=== PATIENT | male | born 1940 | race Two or more races ===

== ENCOUNTER 2019-09-13 16:06 | Emergency (ER) | payer OTHER, MEDICAID ==
[~2019-09-13] VITALS: Ht 165.1 cm; Wt 60.8 kg
[2019-09-13] MEDS ORDERED: LIPITOR80 MG ORAL (16:39)
[2019-09-13] MEDS ORDERED: PLAVIX75 MG ORAL (16:39)
[2019-09-13] MEDS ORDERED: NITRO0.4 SL (16:39)
[2019-09-13] MEDS ORDERED: ASPIRIN-LOW81 MG ORAL (16:39)
[2019-09-13] MEDS ORDERED: KEPPRA500 M3 ORAL (16:39)
--- NOTE | 2019-09-13 16:50 | NUR ---
ED Nurse Note: pt eval by . pt denies known injury to leg. able to ambulate steady gait to rm
--- NOTE | 2019-09-13 16:53 | Emergency Room Report ---
History of Present Illness General Chief Complaint: General Complaint Source: Patient Present Illness HPI Disclaimer: Please note that this report is being documented using [employer] technology. This can lead to erroneous entry secondary to incorrect interpretation by the dictating instrument. HPI: 79-year-old male history of hypertension, CAD on aspirin and Plavix presents for evaluation of bruising to the lower extremity. He cannot recall a specific injury but states he has had a tender bruise over the medial aspect of the left knee for approximately 8 days. Does not impede his ambulation. Reports moderate pain that is worse with standing and better with rest. Not taking any medications for pain. He was concerned because he could not recall a specific injury and wanted to get checked out. He is not discussed with his PMD yet. Otherwise denies any recent changes in his health. Does not take anticoagulants aside from aspirin and Plavix. PMH: Hypertension, CAD, seizure disorder PSH: Reviewed Allergies: Denies Social Hx: Denies Allergies: Coded Allergies: No Known Allergies (Unverified , 09/13/19) Nursing Documentation-PMH Hx Seizures: Yes Review of Systems All Other Systems: negative except mentioned in HPI Physical Exam Vital Signs Date Time Temp Pulse Resp B/P (MAP) Pulse Ox O2 Delivery O2 Flow Rate FiO2 09/13/19 16:22 97.9 78 19 149/78 (101) 99 Room Air General: Awake and alert, no acute distress HEENT: NC/AT. EOMI. Resp: Normal work of breathing Skin: Ecchymosis over the lateral aspect the left knee extending into the proximal tibia. Tender to palpation. No edema. No skin breakdown. MSK: Normal tone and bulk. Moving all extremities. No obvious deformity. Tender palpation over the proximal tibia. No laxity in the knee. No tenderness over the patella. Tenderness over the tibia. No deformity noted. Ambulating without difficulty. Neuro: Awake and alert. Mentating appropriately Medical Decision Making Diagnostic Impression: Primary Impression: Superficial bruising of lower leg ER Course 79-year-old male on aspirin and Plavix presents for evaluation of bruising over the lower extremity of 1 week duration. Patient has a circular bruise on the proximal tibia consistent with an injury though he cannot recall what specifically. His bruising is likely from a minor injury that he does not recall and given his aspirin and Plavix use, he is prone to bruise more easily. He otherwise feels well and has no complaints. X-rays were obtained of the knee and tib/fib. No injury appreciated. The patient can be discharged to follow-up with his PMD. They will discuss his current medication regimen. Also counseled him to be careful ambulating as even a small bump against a table or chair can cause significant bruising in somebody who takes aspirin and Plavix. Family understands and will keep a close eye on him. He will be discharged with PMD follow-up. Return precautions discussed. He ambulated out of the emergency department under his own power without difficulty. Other X-Ray Diagnostic Results Other X-Ray Diagnostic Results #1: X-Ray ordered: Left knee # of Views/Limited Vs Complete: 3 View Indication: Pain EP Interpretation: Yes Interpretation: no dislocation, no soft tissue swelling, no fractures Impression: No acute disease Electronically Signed by: Electronically signed by Dr. Amador Velazquez Other X-Ray Diagnostic Results #2: X-Ray ordered: Tib-fib # of Views/Limited Vs Complete: 1 View, 2 View Indication: Pain EP Interpretation: Yes Interpretation: no dislocation, no soft tissue swelling, no fractures Impression: No acute disease Electronically Signed by: Electronically signed by Dr. Amador Velazquez Last Vital Signs Date Time Temp Pulse Resp B/P (MAP) Pulse Ox O2 Delivery O2 Flow Rate FiO2 09/13/19 16:22 97.9 78 19 149/78 (101) 99 Room Air Disposition: HOME, SELF-CARE Condition: Stable Amador Velazquez MD Sep 13, 2019 16:53
--- NOTE | 2019-09-13 16:56 | NUR ---
ED Nurse Note: pt with portable xrays being done. family at bs
[2019-09-13 17:41] VITALS: BP 124/58
[2019-09-13 17:42] VITALS: BP 124/58
--- NOTE | 2019-09-13 17:45 | NUR ---
ED Nurse Note: Pt cleared by health care Provider for discharge. DC instructions/prescription was given and explained to pt and verbalized understanding of teachings. All medical devices such as ID band removed. Pt is AAO x4, ambulatory and left with all personal belongings.
--- NOTE | 2019-09-14 09:04 | Diagnostic Imaging Report ---
Indication: Pain, injury, bruising Technique: 3 views of the left knee Comparison: None Findings: No acute fractures. No dislocations. The joint spaces are preserved Impression: Negative
--- NOTE | 2019-09-14 09:04 | Diagnostic Imaging Report ---
Indication: Injury, bruising Technique: 2 views of the left tibia and fibula Comparison: none Findings: No acute fractures. No dislocations. No radiopaque foreign body Impression: Negative
== END 2019-09-13 17:42 | disposition home or self-care (01) ==
LOC: EMR 17:01
DX: S80.12XA Contusion of left lower leg, initial encounter (principal); I11.9 Hypertensive heart disease without heart failure; Z79.82 Long term (current) use of aspirin; Z79.02 Long term (current) use of antithrombotics/antiplatelets; G40.909 Epilepsy, unspecified, not intractable, without status epilepticus; X58.XXXA Exposure to other specified factors, initial encounter; Y92.9 Unspecified place or not applicable
CPT/HCPCS: 99284